=== PATIENT | female | born 1960 | race Caucasian/White ===

== ENCOUNTER 2018-10-07 16:12 | Emergency (ER) | payer MEDICARE, MEDICAID ==
[~2018-10-07] VITALS: Ht 152.4 cm; Wt 73.9 kg
[2018-10-07 17:09] LABS: Alanine Aminotransferase 20 U/L (13-56); Anion Gap 6 (5-15); Blood Urea Nitrogen 8 mg/dL (7-18); Calcium 8.8 mg/dL (8.5-10.1); Carbon Dioxide 23 mmol/L (21-32); Chloride 110 mmol/L (98-107); Glucose 89 mg/dL (74-106); Magnesium 2.9 mg/dL (1.6-2.6); Potassium 3.9 mmol/L (3.5-5.1); Sodium 139 mmol/L (136-145)
[2018-10-07 17:10] LABS: Basophils # (auto) 0.1 uL; Basophils % (auto) 0.9 % (0.0-2.0); Eosinophils # (auto) 0.1 uL; Eosinophils % (auto) 0.8 % (0.0-7.0); Hematocrit 44.5 % (36.0-46.0); Lymphocytes # (auto) 3.8 uL; Lymphocytes % (auto) 42.3 % (10.0-50.0); Mean Corpuscular Hemoglobin 30.7 pg (28.0-32.0); Mean Corpuscular Hgb Conc. 33.8 g/dL (32.0-36.0); Mean Corpuscular Volume 90.7 fL (80.0-100.0); Monocytes # (auto) 0.6 uL; Monocytes % (auto) 6.8 % (0.0-12.0); Neutrophils # (auto) 4.5 uL; Neutrophils % (auto) 49.2 % (37.0-80.0); Platelet Count (auto) 285 10^3/uL (140-450); Red Blood Cells 4.91 10^6/uL (4.0-5.20)
[2018-10-07 17:14] LABS: Alkaline Phosphatase 86 U/L (45-117); Aspartate Aminotransferase 17 U/L (15-37); BUN/Creatinine Ratio 12.9; Bilirubin, Total 0.3 mg/dL (0.2-1.0); GFR African American 128 mL/min; GFR Non-African American 106 mL/min; Total Protein 7.7 g/dL (6.4-8.2)
[2018-10-07] MEDS ORDERED: LEVOFLOXACIN 500 MG TAB PO ONE (19:15)
[2018-10-07 19:16] LABS: Urine Bacteria MANY /hpf (None Seen); Urine Blood 1+ /uL (Negative); Urine Mucus FEW (None Seen); Urine Specific Gravity 1.013 (1.001-1.035); Urine WBC 6 /hpf (0 - 5)
[2018-10-07 20:00] VITALS: BP 144/79
== END 2018-10-07 20:19 | disposition home or self-care (01) ==
LOC: ER 16:12
DX: J40 Bronchitis, not specified as acute or chronic (principal); N39.0 Urinary tract infection, site not specified; R19.7 Diarrhea, unspecified
CPT/HCPCS: 36415; 70450; 71046; 80053; 81001; 83735; 84484; 85025; 93005

== ENCOUNTER 2025-10-06 15:24 | Emergency (ER) | payer MEDICARE, OTHER ==
[~2025-10-06] VITALS: Ht 149.9 cm; Wt 83.0 kg
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
--- NOTE | 2025-10-06 19:47 | DVH ---
EXAM: CT LS SPINE WO CONTRAST INDICATION: pain TECHNIQUE:: Axial images of the lumbar spine have been obtained along with coronal and sagittal reformatted images. CT scans at this facility use dose modulation, iterative reconstruction, and/or weight based dosing when appropriate to reduce radiation dose to as low as reasonably achievable. Dose: CTDIvol: 30.4 mGy, DLP: 876.4 mGy.cm COMPARISON: None FINDINGS: There is an age-indeterminate moderate compression fracture of L5 with approximately 4 mm of retropulsion. There is grade 1 anterolisthesis of L4 on L5. There are mild degenerative changes of the spine characterized by endplate osteophytosis and intervertebral disc space narrowing. The paraspinal soft tissues are unremarkable. LEVEL BY LEVEL DISCUSSION BELOW: T12-L1: Unremarkable. L1-L2: Unremarkable. L2-L3: A mild disc protrusion effaces the thecal sac. L3-L4: A mild disc protrusion effaces the thecal sac. There is facet arthropathy. L4-L5: There is grade 1 anterolisthesis with unroofing of the disc. There is facet arthropathy. There is mild spinal canal and borderline bilateral neural foraminal stenosis. L5-S1: There is facet arthropathy without significant spinal canal or neural foraminal stenosis. IMPRESSION: 1. Age-indeterminate moderate compression fracture of L5. Comparison with prior imaging suggested in assessing acuity and interval change. If clinically indicated, MRI may be beneficial in further assessment. 2. Degenerative changes of the lumbar spine as detailed.
[2025-10-06] MEDS: diazePAM 5 MG TAB PO ONE (21:55)
[2025-10-06] MEDS: methylPREDNISolone SOD SUCC 125 MG/2 ML VL IM ONE (21:56)
[2025-10-06] MEDS: methylPREDNISolone SOD SUCC 125 MG/2 ML VL IV ONE (22:11)
[2025-10-06 22:15] VITALS: BP 118/68; PULSE 71; RESP 20; TEMP 98.1; O2SAT 96
== END 2025-10-06 22:23 | disposition short-term general hospital (02) ==
LOC: EDUNIT# 15:24 → EDBD 15:24 → ER 15:24
DX: M54.16 Radiculopathy, lumbar region (principal); Z90.710 Acquired absence of both cervix and uterus; Z88.5 Allergy status to narcotic agent; Z88.2 Allergy status to sulfonamides; Z88.1 Allergy status to other antibiotic agents; Z88.0 Allergy status to penicillin; Z79.899 Other long term (current) drug therapy
CPT/HCPCS: 72131; 96372; 99285; J2919; 96374